=== PATIENT | male | born 1950 | race Caucasian/White ===

== ENCOUNTER 2021-12-14 14:20 | Inpatient (IN) | payer MEDICARE ==
[2021-12-14] VITALS (16 sets, daily range): BP systolic 117–176; BP diastolic 56–102
[~2021-12-14] VITALS: Ht 180.3 cm; Wt 65.0 kg
[2021-12-14 14:50] LABS: HEMATOCRIT 44.5 % (39.0-50.0); HEMOGLOBIN 14.8 g/dl (14.0-18.0); IMMATURE GRANULOCYTES 1.9 % (0.0-5.0); MEAN CELL VOLUME 89.2 fL CALC (80.0-100.0); MEAN CORPUSCULAR HGB 29.7 pG CALC (26.0-32.0); MEAN CORPUSCULAR HGB CONC 33.3 g/dL CAL (32.0-36.0); NEUT# 6.92 thou/uL (1.82-7.42); RED BLOOD COUNT 4.99 mill/uL (4.70-6.10)
[2021-12-14 14:58] LABS: ALBUMIN 3.9 g/dL (3.2-5.0); BILIRUBIN, TOTAL 0.7 mg/dL (0.0-1.4); CREATININE 1.6 mg/dL (0.7-1.3); MAGNESIUM 2.5 mg/dL (1.6-2.3); POTASSIUM 4.2 mmol/l (3.5-5.1); TOTAL PROTEIN 6.8 g/dL (6.3-8.2)
[2021-12-14 14:59] LABS: ACT PARTIAL THROMBO TIME 23.4 SECONDS (20.0-32.5); PROTHROMBIN TIME 10.2 SECONDS (9.0-12.5)
[2021-12-14 15:45] LABS: TSH, 3RD GENERATION 1.25 uIU/mL (0.47 - 4.68)
[2021-12-14 16:05] LABS: URINE BILIRUBIN - DIPSTICK NEGATIVE (NEGATIVE); URINE BLOOD DIPSTICK LARGE (NEGATIVE); URINE COLOR YELLOW; URINE GLUCOSE - DIPSTICK NEGATIVE (NEGATIVE); URINE KETONE NEGATIVE (NEGATIVE); URINE LEUK ESTERASE NEGATIVE (NEGATIVE); URINE PROTEIN - DIPSTICK NEGATIVE (NEG-TRACE); URINE SPECIFIC GRAVITY 1.015; URINE UROBILINOGEN - DIPSTICK 0.2 E.U./dL (0.2)
[2021-12-14 16:08] LABS: URINE NITRITE - DIPSTICK NEGATIVE (Negative)
[2021-12-14 16:09] LABS: URINE MUCUS FEW hpf (NONE-FEW)
[2021-12-15 05:41] LABS: HEMATOCRIT 42.5 % (39.0-50.0); HEMOGLOBIN 13.8 g/dl (14.0-18.0); MEAN CELL VOLUME 90.8 fL CALC (80.0-100.0); MEAN CORPUSCULAR HGB 29.5 pG CALC (26.0-32.0); MEAN CORPUSCULAR HGB CONC 32.5 g/dL CAL (32.0-36.0); NEUT# 6.31 thou/uL (1.82-7.42); RED BLOOD COUNT 4.68 mill/uL (4.70-6.10)
[2021-12-15 06:06] LABS: ALBUMIN 3.7 g/dL (3.2-5.0); BILIRUBIN, TOTAL 0.7 mg/dL (0.0-1.4); CREATININE 1.4 mg/dL (0.7-1.3); MAGNESIUM 2.4 mg/dL (1.6-2.3); POTASSIUM 4.2 mmol/l (3.5-5.1); TOTAL PROTEIN 6.3 g/dL (6.3-8.2)
[2021-12-15 07:13] VITALS: BP 144/80
[2021-12-15 15:43] VITALS: BP 172/89
[2021-12-15 16:43] VITALS: BP 172/89
[2021-12-15 17:52] VITALS: BP 111/71
[2021-12-16 04:54] VITALS: BP 146/77
[2021-12-16 05:05] LABS: HEMATOCRIT 39.9 % (39.0-50.0); IMMATURE GRANULOCYTES 4.6 % (0.0-5.0); MEAN CELL VOLUME 90.7 fL CALC (80.0-100.0); MEAN CORPUSCULAR HGB 29.5 pG CALC (26.0-32.0); MEAN CORPUSCULAR HGB CONC 32.6 g/dL CAL (32.0-36.0); NEUT# 6.57 thou/uL (1.82-7.42); RED BLOOD COUNT 4.4 mill/uL (4.70-6.10); RED CELL DISTRI WIDTH 14.2 % (11.5-15.5)
[2021-12-16 05:35] LABS: ANION GAP 12 (6-22 (CALC)); BUN 41 mg/dL (8-23); BUN/CREATININE RATIO 31 (12-20 (CALC)); CARBON DIOXIDE 24 mmol/l (22-30); CHLORIDE 111 mmol/l (95-108); CREATININE 1.3 mg/dL (0.7-1.3); GFR FOR AFR.AMER. > 60 ML/MIN (>=60 (CALC)); GFR OTHER RACES 54 ML/MIN (>=60 (CALC)); MAGNESIUM 2.2 mg/dL (1.6-2.3); POTASSIUM 4.2 mmol/l (3.5-5.1); SODIUM 143 mmol/l (137-146)
[2021-12-16 09:52] VITALS: BP 152/68
[2021-12-16 14:53] VITALS: BP 130/66
[2021-12-17 05:47] VITALS: BP 109/54
[2021-12-17 05:59] LABS: HEMATOCRIT 38.2 % (39.0-50.0); HEMOGLOBIN 12.7 g/dl (14.0-18.0); MEAN CELL VOLUME 89.9 fL CALC (80.0-100.0); MEAN CORPUSCULAR HGB 29.9 pG CALC (26.0-32.0); MEAN CORPUSCULAR HGB CONC 33.2 g/dL CAL (32.0-36.0); RED BLOOD COUNT 4.25 mill/uL (4.70-6.10)
[2021-12-17 06:54] LABS: ANION GAP 9 (6-22 (CALC)); BUN 29 mg/dL (8-23); BUN/CREATININE RATIO 31 (12-20 (CALC)); CARBON DIOXIDE 27 mmol/l (22-30); CHLORIDE 111 mmol/l (95-108); CREATININE 0.9 mg/dL (0.7-1.3); GFR FOR AFR.AMER. > 60 ML/MIN (>=60 (CALC)); GFR OTHER RACES > 60 ML/MIN (>=60 (CALC)); SODIUM 144 mmol/l (137-146)
[2021-12-17 07:00] LABS: POTASSIUM 3.3 mmol/l (3.5-5.1)
[2021-12-17 15:37] VITALS: BP 150/87
[2021-12-17 17:47] VITALS: BP 155/89
[2021-12-17 19:00] VITALS: BP 150/87
[2021-12-18 04:00] VITALS: BP 147/85
[2021-12-18 04:55] VITALS: BP 178/99
[2021-12-18 05:52] LABS: ALKALINE PHOSPHATASE 59 u/l (38-126); ANION GAP 7 (6-22 (CALC)); BILIRUBIN, TOTAL 0.6 mg/dL (0.0-1.4); BUN 20 mg/dL (8-23); BUN/CREATININE RATIO 27 (12-20 (CALC)); CARBON DIOXIDE 29 mmol/l (22-30); CHLORIDE 110 mmol/l (95-108); CREATININE 0.7 mg/dL (0.7-1.3); GFR FOR AFR.AMER. > 60 ML/MIN (>=60 (CALC)); GFR OTHER RACES > 60 ML/MIN (>=60 (CALC)); POTASSIUM 3.2 mmol/l (3.5-5.1); SODIUM 143 mmol/l (137-146); TOTAL PROTEIN 5.6 g/dL (6.3-8.2)
[2021-12-18 05:54] LABS: HEMATOCRIT 37.7 % (39.0-50.0); HEMOGLOBIN 12.5 g/dl (14.0-18.0); MEAN CELL VOLUME 90.4 fL CALC (80.0-100.0); MEAN CORPUSCULAR HGB CONC 33.2 g/dL CAL (32.0-36.0); NEUT# 6.2 thou/uL (1.82-7.42); RED BLOOD COUNT 4.17 mill/uL (4.70-6.10); RED CELL DISTRI WIDTH 14.1 % (11.5-15.5)
[2021-12-18 06:01] LABS: SGOT/AST 98 u/l (19-48)
[2021-12-18 06:08] LABS: IMMATURE GRANULOCYTES 7.2 % (0.0-5.0)
[2021-12-18 14:41] VITALS: BP 173/99
[2021-12-18 18:04] VITALS: BP 164/104
[2021-12-18 20:00] VITALS: BP 154/90
[2021-12-19] VITALS (7 sets, daily range): BP systolic 140–190; BP diastolic 73–104
[2021-12-19 05:35] LABS: ALBUMIN 3.6 g/dL (3.2-5.0); ALKALINE PHOSPHATASE 83 u/l (38-126); ANION GAP 11 (6-22 (CALC)); BUN 22 mg/dL (8-23); BUN/CREATININE RATIO 31 (12-20 (CALC)); CARBON DIOXIDE 27 mmol/l (22-30); CHLORIDE 107 mmol/l (95-108); CREATININE 0.7 mg/dL (0.7-1.3); GFR FOR AFR.AMER. > 60 ML/MIN (>=60 (CALC)); GFR OTHER RACES > 60 ML/MIN (>=60 (CALC)); POTASSIUM 3.5 mmol/l (3.5-5.1); SODIUM 142 mmol/l (137-146); TOTAL PROTEIN 6.4 g/dL (6.3-8.2)
[2021-12-19 05:36] LABS: BILIRUBIN, TOTAL 0.9 mg/dL (0.0-1.4); SGOT/AST 185 u/l (19-48)
[2021-12-19 05:39] LABS: HEMATOCRIT 40.1 % (39.0-50.0); HEMOGLOBIN 13.5 g/dl (14.0-18.0); MEAN CELL VOLUME 89.5 fL CALC (80.0-100.0); MEAN CORPUSCULAR HGB 30.1 pG CALC (26.0-32.0); MEAN CORPUSCULAR HGB CONC 33.7 g/dL CAL (32.0-36.0); NEUT# 7.51 thou/uL (1.82-7.42); RED BLOOD COUNT 4.48 mill/uL (4.70-6.10); RED CELL DISTRI WIDTH 14.1 % (11.5-15.5)
[2021-12-19 05:49] LABS: IMMATURE GRANULOCYTES 7.6 % (0.0-5.0)
[2021-12-20 03:25] VITALS: BP 159/96
[2021-12-20 05:42] LABS: HEMATOCRIT 39.5 % (39.0-50.0); HEMOGLOBIN 13.1 g/dl (14.0-18.0); IMMATURE GRANULOCYTES 5.9 % (0.0-5.0); MEAN CELL VOLUME 89.8 fL CALC (80.0-100.0); MEAN CORPUSCULAR HGB 29.8 pG CALC (26.0-32.0); MEAN CORPUSCULAR HGB CONC 33.2 g/dL CAL (32.0-36.0); NEUT# 7.97 thou/uL (1.82-7.42); RED BLOOD COUNT 4.4 mill/uL (4.70-6.10); RED CELL DISTRI WIDTH 14.2 % (11.5-15.5)
[2021-12-20 06:09] LABS: ALBUMIN 2.9 g/dL (3.2-5.0); ALKALINE PHOSPHATASE 81 u/l (38-126); ANION GAP 7 (6-22 (CALC)); BILIRUBIN, TOTAL 0.6 mg/dL (0.0-1.4); BUN 18 mg/dL (8-23); BUN/CREATININE RATIO 27 (12-20 (CALC)); CARBON DIOXIDE 28 mmol/l (22-30); CHLORIDE 110 mmol/l (95-108); CREATININE 0.7 mg/dL (0.7-1.3); GFR FOR AFR.AMER. > 60 ML/MIN (>=60 (CALC)); GFR OTHER RACES > 60 ML/MIN (>=60 (CALC)); POTASSIUM 3.4 mmol/l (3.5-5.1); SGOT/AST 109 u/l (19-48); SODIUM 142 mmol/l (137-146); TOTAL PROTEIN 5.3 g/dL (6.3-8.2)
[2021-12-20 07:13] VITALS: BP 149/81
[2021-12-20 15:54] VITALS: BP 120/60
[2021-12-20 17:52] VITALS: BP 114/65
[2021-12-21 03:31] VITALS: BP 136/87
[2021-12-21 06:24] VITALS: BP 169/97
[2021-12-21 10:17] VITALS: BP 165/91
[2021-12-21 15:01] VITALS: BP 123/69
[2021-12-21 17:57] VITALS: BP 137/87
[2021-12-22 03:55] VITALS: BP 162/85
[2021-12-22 05:45] LABS: ANION GAP 8 (6-22 (CALC)); BUN 19 mg/dL (8-23); BUN/CREATININE RATIO 28 (12-20 (CALC)); CARBON DIOXIDE 25 mmol/l (22-30); CHLORIDE 108 mmol/l (95-108); CREATININE 0.7 mg/dL (0.7-1.3); GFR FOR AFR.AMER. > 60 ML/MIN (>=60 (CALC)); GFR OTHER RACES > 60 ML/MIN (>=60 (CALC)); POTASSIUM 3.8 mmol/l (3.5-5.1); SODIUM 137 mmol/l (137-146)
[2021-12-22 05:50] LABS: HEMATOCRIT 37.7 % (39.0-50.0); HEMOGLOBIN 12.6 g/dl (14.0-18.0); IMMATURE GRANULOCYTES 2.9 % (0.0-5.0); MEAN CELL VOLUME 89.1 fL CALC (80.0-100.0); MEAN CORPUSCULAR HGB 29.8 pG CALC (26.0-32.0); MEAN CORPUSCULAR HGB CONC 33.4 g/dL CAL (32.0-36.0); NEUT# 7.74 thou/uL (1.82-7.42); RED BLOOD COUNT 4.23 mill/uL (4.70-6.10); RED CELL DISTRI WIDTH 14.2 % (11.5-15.5)
[2021-12-22 06:44] VITALS: BP 142/74
[2021-12-22 09:19] VITALS: BP 138/80
[2021-12-22 16:04] VITALS: BP 139/78
[2021-12-22 19:32] VITALS: BP 145/76
[2021-12-23 05:09] VITALS: BP 106/67
[2021-12-23 05:47] LABS: ANION GAP 4 (6-22 (CALC)); BUN 20 mg/dL (8-23); BUN/CREATININE RATIO 29 (12-20 (CALC)); CARBON DIOXIDE 27 mmol/l (22-30); CHLORIDE 108 mmol/l (95-108); CREATININE 0.7 mg/dL (0.7-1.3); GFR FOR AFR.AMER. > 60 ML/MIN (>=60 (CALC)); GFR OTHER RACES > 60 ML/MIN (>=60 (CALC)); POTASSIUM 3.5 mmol/l (3.5-5.1); SODIUM 136 mmol/l (137-146)
[2021-12-23 06:47] VITALS: BP 140/76
[2021-12-23 09:13] VITALS: BP 135/68
[2021-12-23 15:19] VITALS: BP 137/78
[2021-12-23 18:59] VITALS: BP 129/75
[2021-12-24] VITALS (8 sets, daily range): BP systolic 100–181; BP diastolic 52–84
[2021-12-25 03:51] VITALS: BP 139/84
[2021-12-25 05:57] LABS: HEMATOCRIT 33.9 % (39.0-50.0); HEMOGLOBIN 11.4 g/dl (14.0-18.0); MEAN CORPUSCULAR HGB 29.9 pG CALC (26.0-32.0); MEAN CORPUSCULAR HGB CONC 33.6 g/dL CAL (32.0-36.0); RED BLOOD COUNT 3.81 mill/uL (4.70-6.10); RED CELL DISTRI WIDTH 14.1 % (11.5-15.5)
[2021-12-25 06:09] VITALS: BP 152/77
[2021-12-25 06:12] LABS: ANION GAP 7 (6-22 (CALC)); BUN 21 mg/dL (8-23); BUN/CREATININE RATIO 28 (12-20 (CALC)); CARBON DIOXIDE 28 mmol/l (22-30); CHLORIDE 105 mmol/l (95-108); CREATININE 0.7 mg/dL (0.7-1.3); GFR FOR AFR.AMER. > 60 ML/MIN (>=60 (CALC)); GFR OTHER RACES > 60 ML/MIN (>=60 (CALC)); POTASSIUM 3.9 mmol/l (3.5-5.1); SODIUM 136 mmol/l (137-146)
[2021-12-25 16:21] VITALS: BP 143/75
[2021-12-26 04:15] VITALS: BP 128/70
[2021-12-26 07:13] VITALS: BP 147/72
[2021-12-26 14:30] VITALS: BP 136/69
[2021-12-26 19:00] VITALS: BP 142/73
[2021-12-27 04:22] VITALS: BP 142/74
[2021-12-27 06:15] VITALS: BP 132/71
[2021-12-27 06:17] VITALS: BP 132/62
[2021-12-27 07:17] VITALS: BP 132/62
[2021-12-27 17:13] VITALS: BP 138/71
[2021-12-27 19:06] VITALS: BP 122/74
[2021-12-28 04:36] VITALS: BP 142/85
[2021-12-28 06:39] VITALS: BP 126/83
[2021-12-28 15:39] VITALS: BP 127/68
[2021-12-28 21:23] VITALS: BP 152/77
[2021-12-29 04:00] VITALS: BP 145/81
[2021-12-29 04:18] VITALS: BP 145/81
[2021-12-29 07:16] VITALS: BP 139/67
[2021-12-29 08:40] LABS: HEMATOCRIT 31.9 % (39.0-50.0); HEMOGLOBIN 10.7 g/dl (14.0-18.0); MEAN CELL VOLUME 87.9 fL CALC (80.0-100.0); MEAN CORPUSCULAR HGB 29.5 pG CALC (26.0-32.0); MEAN CORPUSCULAR HGB CONC 33.5 g/dL CAL (32.0-36.0); RED BLOOD COUNT 3.63 mill/uL (4.70-6.10); RED CELL DISTRI WIDTH 13.8 % (11.5-15.5)
[2021-12-29 08:49] LABS: ALBUMIN 2.9 g/dL (3.2-5.0); ANION GAP 8 (6-22 (CALC)); BILIRUBIN, TOTAL 0.5 mg/dL (0.0-1.4); BUN 25 mg/dL (8-23); BUN/CREATININE RATIO 32 (12-20 (CALC)); CARBON DIOXIDE 30 mmol/l (22-30); CHLORIDE 104 mmol/l (95-108); CREATININE 0.8 mg/dL (0.7-1.3); GFR FOR AFR.AMER. > 60 ML/MIN (>=60 (CALC)); GFR OTHER RACES > 60 ML/MIN (>=60 (CALC)); POTASSIUM 3.8 mmol/l (3.5-5.1); SGOT/AST 131 u/l (19-48); SODIUM 138 mmol/l (137-146); TOTAL PROTEIN 5.6 g/dL (6.3-8.2)
[2021-12-29 08:51] LABS: ALKALINE PHOSPHATASE 163 u/l (38-126)
[2021-12-29 10:32] VITALS: BP 119/42
[2021-12-29 14:49] VITALS: BP 150/90
[2021-12-29 18:30] VITALS: BP 164/94
[2021-12-30 04:16] VITALS: BP 157/82
[2021-12-30 05:58] VITALS: BP 139/71
[2021-12-30 08:31] VITALS: BP 156/88
[2021-12-30 15:49] VITALS: BP 143/78
[2021-12-30 16:14] VITALS: BP 143/78
[2021-12-30 19:24] VITALS: BP 135/75
[2021-12-31 05:08] VITALS: BP 157/80
[2021-12-31 06:16] VITALS: BP 154/94
[2021-12-31 14:47] VITALS: BP 154/94
[2021-12-31 15:42] VITALS: BP 157/79
[2021-12-31 19:03] VITALS: BP 155/89
== END 2021-12-31 22:45 | disposition hospice, inpatient (51) | DRG 193 ==
LOC: ED 14:20 → MS2 16:34
PROVIDERS: Family Medicine; Internal Medicine; Nurse Practitioner Family; ADMIT Internal Medicine; ATTEND Internal Medicine
PROC: 0T9B70Z Drainage of Bladder with Drainage Device, Via Natural or Artificial Opening (ICD-10-PCS; principal; 2021-12-16)
PROC: 0T9B70Z Drainage of Bladder with Drainage Device, Via Natural or Artificial Opening (ICD-10-PCS; 2021-12-27)
DX: J18.9 Pneumonia, unspecified organism (principal); G93.41 Metabolic encephalopathy; N17.9 Acute kidney failure, unspecified; N13.8 Other obstructive and reflux uropathy; N13.30 Unspecified hydronephrosis; C79.31 Secondary malignant neoplasm of brain; C78.7 Secondary malignant neoplasm of liver and intrahepatic bile duct; C78.00 Secondary malignant neoplasm of unspecified lung; E86.0 Dehydration; C80.1 Malignant (primary) neoplasm, unspecified; N40.1 Benign prostatic hyperplasia with lower urinary tract symptoms; R33.8 Other retention of urine; N32.3 Diverticulum of bladder; F03.90 Unspecified dementia, unspecified severity, without behavioral disturbance, psychotic disturbance, mood disturbance, and anxiety; F12.10 Cannabis abuse, uncomplicated; S80.812A Abrasion, left lower leg, initial encounter; S80.811A Abrasion, right lower leg, initial encounter; S70.211A Abrasion, right hip, initial encounter; F17.200 Nicotine dependence, unspecified, uncomplicated; X58.XXXA Exposure to other specified factors, initial encounter; Z51.5 Encounter for palliative care; Z20.822 Contact with and (suspected) exposure to COVID-19
CPT/HCPCS: J0131; J2060; Q9967